=== PATIENT | female | born 1945 | race African-American/Black ===

== ENCOUNTER 2017-11-12 07:18 | Outpatient (CLI) | payer OTHER | END 2017-11-12 07:32 | disposition home or self-care (01) | LOC: LAB 07:18 | DX: I10 Essential (primary) hypertension (principal); M54.5 Low back pain; E78.89 Other lipoprotein metabolism disorders; E55.9 Vitamin D deficiency, unspecified; E66.8 Other obesity; M89.9 Disorder of bone, unspecified; G62.9 Polyneuropathy, unspecified; F41.9 Anxiety disorder, unspecified; M54.14 Radiculopathy, thoracic region; M15.9 Polyosteoarthritis, unspecified; E66.9 Obesity, unspecified; I73.89 Other specified peripheral vascular diseases; Z12.11 Encounter for screening for malignant neoplasm of colon ==

== ENCOUNTER 2017-11-23 15:35 | Outpatient (CLI) | payer OTHER | END 2017-11-23 16:24 | disposition home or self-care (01) | LOC: RAD 501 15:35 | DX: Z96.651 Presence of right artificial knee joint (principal); M25.562 Pain in left knee ==

== ENCOUNTER 2017-12-06 08:18 | Outpatient (CLI) | payer OTHER | END 2017-12-06 08:54 | disposition home or self-care (01) | LOC: RAD 501 08:18 | DX: M54.5 Low back pain (principal) ==

== ENCOUNTER 2018-02-01 08:50 | Outpatient (CLI) | payer OTHER | END 2018-02-01 09:00 | disposition home or self-care (01) | LOC: RAD 501 08:50 | DX: M25.572 Pain in left ankle and joints of left foot (principal); M79.672 Pain in left foot ==

== ENCOUNTER 2018-03-06 09:23 | Outpatient (CLI) | payer OTHER | END 2018-03-06 09:32 | disposition home or self-care (01) | LOC: TOM 09:23 | DX: R51 Headache (principal); I73.9 Peripheral vascular disease, unspecified; M15.8 Other polyosteoarthritis; M54.14 Radiculopathy, thoracic region; F41.8 Other specified anxiety disorders; G62.89 Other specified polyneuropathies; M89.9 Disorder of bone, unspecified; E66.8 Other obesity; E55.9 Vitamin D deficiency, unspecified; I10 Essential (primary) hypertension; M54.5 Low back pain; E78.89 Other lipoprotein metabolism disorders ==

== ENCOUNTER 2018-03-06 10:50 | Outpatient (CLI) | payer OTHER | END 2018-03-06 11:00 | disposition home or self-care (01) | LOC: LAB 10:50 | DX: I10 Essential (primary) hypertension (principal); E78.89 Other lipoprotein metabolism disorders; E55.9 Vitamin D deficiency, unspecified; E66.8 Other obesity; M89.8X8 Other specified disorders of bone, other site; G62.89 Other specified polyneuropathies; F41.8 Other specified anxiety disorders; M54.14 Radiculopathy, thoracic region; M15.8 Other polyosteoarthritis; I73.89 Other specified peripheral vascular diseases ==

== ENCOUNTER 2018-07-10 08:24 | Outpatient (CLI) | payer OTHER | END 2018-07-10 08:30 | disposition home or self-care (01) | LOC: LAB 08:24 | DX: D64.89 Other specified anemias (principal); M06.4 Inflammatory polyarthropathy ==

== ENCOUNTER 2018-07-10 09:44 | Outpatient (CLI) | payer OTHER | END 2018-07-10 15:36 | disposition home or self-care (01) | LOC: RAD 09:44 | DX: M17.12 Unilateral primary osteoarthritis, left knee (principal); Z96.651 Presence of right artificial knee joint ==

== ENCOUNTER → 2018-07-25 | Outpatient (CLI) | payer OTHER | END | disposition home or self-care (01) | LOC: LAB 08:50 | DX: M06.4 Inflammatory polyarthropathy (principal); D64.89 Other specified anemias ==

== ENCOUNTER 2018-07-29 07:59 | Outpatient (CLI) | payer OTHER | END 2018-07-29 08:10 | disposition home or self-care (01) | LOC: LAB 07:59 | DX: I10 Essential (primary) hypertension (principal); M54.5 Low back pain; E55.9 Vitamin D deficiency, unspecified; E66.8 Other obesity; M54.14 Radiculopathy, thoracic region; I73.9 Peripheral vascular disease, unspecified; E23.6 Other disorders of pituitary gland; M89.8X8 Other specified disorders of bone, other site; M15.8 Other polyosteoarthritis; G62.89 Other specified polyneuropathies; F41.8 Other specified anxiety disorders; E78.89 Other lipoprotein metabolism disorders ==

== ENCOUNTER → 2019-07-02 08:47 | Outpatient (CLI) | payer OTHER | END | disposition home or self-care (01) | LOC: LAB 08:47 | DX: E66.01 Morbid (severe) obesity due to excess calories (principal); I73.89 Other specified peripheral vascular diseases; M15.8 Other polyosteoarthritis; M54.5 Low back pain; E55.9 Vitamin D deficiency, unspecified; E66.8 Other obesity; I11.9 Hypertensive heart disease without heart failure ==